=== PATIENT | male | born 1985 | race Two or more races ===

== ENCOUNTER → 2021-08-21 | Emergency (ER) | payer MEDICAID, OTHER ==
[~2021-08-21] VITALS: Ht 172.7 cm; Wt 75.4 kg
[~2021-08-21] MED LIST: LORA-655 PO; LORazepam 2MG/ML-1ML VIAL IM ONE
[2021-08-21 03:52] VITALS: BP 180/105
== END | disposition home or self-care (01) ==
LOC: ER 00:47
DX: F41.9 Anxiety disorder, unspecified (principal)
CPT/HCPCS: 93005; 96372; 99283; J2060